=== PATIENT | female | born 1955 | race Caucasian/White ===

== ENCOUNTER → 2024-03-11 | Outpatient (CLI) | payer MEDICARE ==
--- NOTE | 2024-03-12 12:31 | MR ---
EXAMINATION TYPE: MR knee LT wo con DATE OF EXAM: 03/11/2024 COMPARISON: NONE HISTORY: Left knee medial pain and locking since 11-28-23. Other tear of medial meniscus. TECHNIQUE: Multiplanar, multisequence images of the knee is performed without IV contrast. FINDINGS: MEDIAL MENISCUS: Medial extrusion of medial meniscus on coronal images. Horizontal and Oblique signal posterior horn extends to the inferior articular surface. LATERAL MENISCUS: Anterior and posterior horns are intact without tear. CRUCIATE LIGAMENTS: The anterior and posterior cruciate ligaments are intact and unremarkable. COLLATERAL LIGAMENTS: The medial collateral ligament and lateral collateral ligament complex are inta ct and unremarkable. EXTENSOR MECHANISM: Visualized quadriceps and patellar tendons are intact. Some increased signal dist al quadriceps tendon. EFFUSION: Moderate size suprapatellar joint effusion. POPLITEAL CYST: Small size popliteal/lawler cyst. TRICOMPARTMENT SPACES: Mild to moderate tricompartment joint space loss with mild spurring, findings most prominent involving the patellofemoral compartment. CARTILAGE: Some chondromalacia patella or cartilaginous loss along the posterior pole of the patella. BONE MARROW SIGNAL: Overall heterogeneity with slightly more prominent diffuse increased T2 signal th rough the patella. OTHER: No additional significant abnormality is appreciated. IMPRESSION: 1. Full-thickness tear posterior horn of the medial meniscus. 2. Diffuse osseous edema throughout the patella. Some tendinosis of the distal quadriceps tendon. 3. Moderate-sized suprapatellar joint effusion. 4. Mild/moderate tricompartment degenerative changes most prominent patellofemoral compartment as det mellissa above. 5. Small sized popliteal cyst.
== END | disposition home or self-care (01) ==
LOC: RADMRIMAIN 15:04
PROVIDERS: ATTEND Orthopaedic Surgery
DX: S83.242A Other tear of medial meniscus, current injury, left knee, initial encounter (principal); M25.462 Effusion, left knee; M17.12 Unilateral primary osteoarthritis, left knee; M71.20 Synovial cyst of popliteal space [Baker], unspecified knee; X58.XXXA Exposure to other specified factors, initial encounter

== ENCOUNTER → 2024-04-05 | Outpatient (CLI) | payer MEDICARE | END | disposition home or self-care (01) | LOC: LABWHC1 12:05 | PROVIDERS: ATTEND Orthopaedic Surgery Adult Reconstructive Orthopaedic Surgery | DX: Z53.9 Procedure and treatment not carried out, unspecified reason (principal) ==